=== PATIENT | female | born 1955 | race Caucasian/White ===

== ENCOUNTER 2021-08-16 04:56 | Inpatient (IN) | payer MEDICARE ==
[~2021-08-16] VITALS: Ht 170.2 cm; Wt 66.2 kg
[2021-08-16 06:50] LABS: BASOPHILS ABSOLUTE AUTO 0.09 K/mm3 (0.00-0.23); BASOPHILS PERCENT AUTO 1 % (0-2); EOSINOPHILS ABSOLUTE AUTO 0.58 K/mm3 (0.00-0.68); EOSINOPHILS PERCENT AUTO 5 % (0-6); Hematocrit 36.5 % (33.0-51.0); Hemoglobin 11.2 g/dL (11.5-16.0); IMMATURE GRAN ABSOLUTE AUTO 0.04 K/mm3 (0.00-0.10); IMMATURE GRAN PERCENT AUTO 0 % (0-1); LYMPHOCYTES ABSOLUTE AUTO 1.79 K/mm3 (0.84-5.20); LYMPHOCYTES PERCENT AUTO 17 % (21-46); MONOCYTES ABSOLUTE AUTO 0.68 K/mm3 (0.16-1.47); MONOCYTES PERCENT AUTO 6 % (4-13); Mean Corpuscular HGB 27.1 pg (26.0-34.0); Mean Corpuscular HGB Conc 30.7 g/dL (31.5-36.5); Mean Corpuscular Volume 88 fL (80-100); Mean Platelet Volume 10.4 fL (9.1-12.4); NEUTROPHILS ABSOLUTE AUTO 7.48 K/mm3 (1.96-9.15); NEUTROPHILS PERCENT AUTO 70 % (41-73); Platelet Count 349 K/mm3 (150-400); RDW Coefficient Variation 13.7 % (11.7-14.2); RDW Standard Deviation 44.8 fL (35.1-46.3); Red Blood Cell Count 4.13 M/mm3 (3.80-5.20); White Blood Cell Count 10.66 K/mm3 (4.00-11.30)
[2021-08-16 07:07] LABS: Alanine Aminotransfer (ALT/SGP 10 U/L (12-78); Albumin, Blood 2.1 g/dL (3.4-5.0); Albumin/Globulin Ratio 0.7 (0.8-1.8); Alk Phos 73 U/L (50-136); Anion Gap 3 mmol/L (6-16); Aspartate Aminotrans (AST/SGOT 14 U/L (12-37); Bilirubin, Total 0.3 mg/dL (0.1-1.0); Blood Urea Nitrogen 9 mg/dL (8-24); CO2, Blood 27 mmol/L (21-32); Calcium, Blood 7.9 mg/dL (8.5-10.1); Chloride, Blood 111 mmol/L (98-108); Creatinine, Blood 0.75 mg/dL (0.40-1.00); Globulin, Blood 3.1 g/dL (2.2-4.0); Glomerular Filtration Rate >60 (60-); Glucose, Blood 110 mg/dL (70-99); Magnesium, Blood 1.8 mg/dL (1.6-2.4); Potassium, Blood 3.6 mmol/L (3.5-5.5); Sodium, Blood 141 mmol/L (136-145); Total Protein, Blood 5.2 g/dL (6.4-8.2)
[2021-08-16] MEDS ORDERED: ALPR1 PO (07:32)
[2021-08-16] MEDS ORDERED: ANORO ELLIPTA1 EAC1 INH (07:34)
[2021-08-16] MEDS ORDERED: ALBU90OI INH (07:37)
[2021-08-16] MEDS ORDERED: GABA100 PO (07:39)
[2021-08-16] MEDS ORDERED: ONDA4 PO (07:41)
[2021-08-16] MEDS ORDERED: DICLOFENAC SOD100 G1 TOP (07:56)
--- NOTE | 2021-08-16 17:39 | NUR ---
PT PLEASANT TODAY. DID HAVE TIMES OF EMOTIONAL. CONCERN WITH CURRENT STATE OF CANCER. DR TUCKER TALKED WITH HER ABOUT CANCER MASS IN LUNG/ESOPHAGUS AREA, MADE NPO AND CALLED DR BARRAGAN FOR CONSULT. ORDERED MED RECORDS FROM [facility]. NOW IN CHART. PT STATES [facility] WILL NOT WORK FOR HER ANX. AFTER 0.5 MG SHE SLEEPING NOW. AWAKENS TO TOUCH. NO OTHER CONCERNS NOTED. BED IN LOW POSITION, CALL LITE IN REACH. CALLS APPROP
--- NOTE | 2021-08-17 05:13 | NUR ---
SHIFT SUMMARY AOX3 ABLE TO VOICE NEEDS C/O PAIN TO HER RIGHT LUNG DUE CANCER FENTALY PRN ADM WITH RELIF.LUNGS SOUNDS DEMISH HERMINIA NONPRODUCTIVE COUGH NEB TX ADM WITH RELIEF HEAD OF THE BED ELEVATED FOR PT COMFORT SOB NOTED RELIEF WITH BREATH IN AND OUTTECHNIQUE AND CONT OXYGEN URINE COLLETED FOR UAC&S PER ORDER
[2021-08-17 05:57] LABS: BASOPHILS ABSOLUTE AUTO 0.09 K/mm3 (0.00-0.23); BASOPHILS PERCENT AUTO 1 % (0-2); EOSINOPHILS ABSOLUTE AUTO 0.44 K/mm3 (0.00-0.68); EOSINOPHILS PERCENT AUTO 4 % (0-6); Hematocrit 40.2 % (33.0-51.0); Hemoglobin 12.1 g/dL (11.5-16.0); IMMATURE GRAN ABSOLUTE AUTO 0.05 K/mm3 (0.00-0.10); IMMATURE GRAN PERCENT AUTO 0 % (0-1); LYMPHOCYTES ABSOLUTE AUTO 0.63 K/mm3 (0.84-5.20); LYMPHOCYTES PERCENT AUTO 5 % (21-46); MONOCYTES ABSOLUTE AUTO 0.47 K/mm3 (0.16-1.47); MONOCYTES PERCENT AUTO 4 % (4-13); Mean Corpuscular HGB 26.4 pg (26.0-34.0); Mean Corpuscular HGB Conc 30.1 g/dL (31.5-36.5); Mean Corpuscular Volume 88 fL (80-100); Mean Platelet Volume 10.7 fL (9.1-12.4); NEUTROPHILS ABSOLUTE AUTO 10.02 K/mm3 (1.96-9.15); NEUTROPHILS PERCENT AUTO 86 % (41-73); Platelet Count 396 K/mm3 (150-400); RDW Coefficient Variation 13.7 % (11.7-14.2); RDW Standard Deviation 44.2 fL (35.1-46.3); Red Blood Cell Count 4.58 M/mm3 (3.80-5.20)
[2021-08-17 06:25] LABS: Alanine Aminotransfer (ALT/SGP 15 U/L (12-78); Albumin, Blood 2.2 g/dL (3.4-5.0); Albumin/Globulin Ratio 0.6 (0.8-1.8); Alk Phos 99 U/L (50-136); Anion Gap 10 mmol/L (6-16); Aspartate Aminotrans (AST/SGOT 20 U/L (12-37); Bilirubin, Total 0.4 mg/dL (0.1-1.0); Blood Urea Nitrogen 7 mg/dL (8-24); Bun/Creatinine Ratio 11.5 (12.0-20.0); CO2, Blood 22 mmol/L (21-32); Calcium, Blood 8.4 mg/dL (8.5-10.1); Chloride, Blood 111 mmol/L (98-108); Creatinine, Blood 0.61 mg/dL (0.40-1.00); Globulin, Blood 3.5 g/dL (2.2-4.0); Glomerular Filtration Rate >60 (60-); Glucose, Blood 95 mg/dL (70-99); Potassium, Blood 3.5 mmol/L (3.5-5.5); Sodium, Blood 143 mmol/L (136-145); Total Protein, Blood 5.7 g/dL (6.4-8.2)
--- NOTE | 2021-08-17 13:16 | NUR ---
SPOKE TO DR. JONES BY PHONE. SHE WILL NOT BE ABLE TO PLACE PEG TUBE FOR THIS PATIENT TODAY, BUT SAID THAT DR. SALCIDO WILL EVALUATE PT FOR PROCEDURE TOMORROW, ASKED THAT LOVEOX BE HELD TOMORROW. NURSE NOTIFY ORDER PLACED.
--- NOTE | 2021-08-17 17:46 | NUR ---
Case Conference: Spoke to pt's Guero today after meeting with pt. He did talk with Dr. Corona today about beginning treatment, both radiation and chemotherapy. Guero was tearful today, but hopeful after speaking to the Dr. Plan to touch base with him again later in the week as needed.
--- NOTE | 2021-08-17 17:54 | NUR ---
Met with pt this evening; she is tearful tonight. She reports she has not been getting adequate pain control. However, the bedside RN has requested and received increase in Fentanyl 50mcg every 2 hours prn from every 4 hrs. Hopeful for better pain control, as pt appears ashen and shaky, in part due to uncontrolled pain. According to Dr. Corona's notes, he plans to begin both radiation and chemo for this patient, as she wishes. Plan to see pt again tomorrow. Today was a visit of merely holding space, comforting pt.
--- NOTE | 2021-08-17 18:04 | NUR ---
SHIFT SUMMARY: PATIENT QUITE ANXIOUS THROUGHOUT THE DAY, BECOMES SEVERLY DYSPNEIC AND ANXIOUS WITH ANY ACTIVITY. WAS SEEN BY DR. NAQVI FROM RADIATION ONCOLOGY, PLAN IS TO START PALLIATIVE RADIATION TOMORROW AT NOON. DR. SALCIDO IS ALSO TO EVALUATE PT FOR PEG PLACEMENT TOMORROW. [facility] CHEST MEDIPORT ACCESSED FOR CPN INFUSION, BRISK BLOOD RETURN NOTED. NO EVENTS ON TELEMETRY, SINUS TACH IN LOW 100'S. C/O SEVERE BACK PAIN; MEDICATED WITH IV FENTANYL, BUT RELIEF ONLY LASTED ABOUT 2.5 HOURS, SO INTERVAL CHANGED PER PROVIDER TO IMPROVE PT COMFORT. O2 @ 5 L/MIN NC, AND SHE IS USING FAN PRN FOR AIR HUNGER. PT WILL NEED TO BE PRE-MEDICATED WITH [facility] PRIOR TO RAD ONC APPOINTMENT TOMORROW. WAS SEEN BY Mela JONES RN FROM PALLIATIVE CARE, WHO DISCUSSED COMFORT OPTIONS SUCH HOSPICE WITH PT. MARTHA SEEMS TO HAVE LITTLE UNDERSTANDING OF THE EXTENT OF HER DISEASE SHE SEEMED SUPRISED BY HOSPICE DISCUSSION. THIS AUTHOR DISCUSSED PT'S CODE STATUS WITH PC RN, , IF PT WERE TO CODE, THERE MAY BE DIFFICULTY WITH INTUBATION R/T EXTENT OF PT'S TUMOR BURDEN. PT WAS TEARFUL AFTER DISCUSSION WITH PC RN.
[2021-08-17] MEDS ORDERED: IPRAT-ALBUT 0.5-3 ML NEB (20:30)
--- NOTE | 2021-08-18 03:00 | NUR ---
MEDIPORT REACCESSED W/20G 1IN ALVAREZ NEEDLE. STERILE TECHNIQUE MAITAINED, ATIMICROBIAL PATCH AND TRANSPARENT DX APPLIED THEN SECURED W/ADDITIONAL TEGADERM DX. BLOOD RETURN VERIFIED AND PORT FLUSHED W/2O MLS NS. PROCEDURE WAS EXPLAINED AND PT WAS RE-EDUCATED ON PURPOSE. REMAINS AT BEDSIDE.
--- NOTE | 2021-08-18 03:14 | NUR ---
PT APPEARS TO BE IN DISTRESS, C/O SOB AND NOT BEING ABLE TO CATCH HER BREATH WHILE AT REST, PT MEDICATED WITH [facility]. PT BECAME IMPULSIVE AND KEEPS GETTING OUT OF BED WITHOUT ASSSISTANCE AND BECOME EXTREMLY SOB WHEN AMBULATING TO THE BEDSIDE COMODE. PT HR SUSTAINED IN THE 180'S MD CALLED AND ORDERS RECIEVED TO HELP CONTROL THE RATE WITH METOPROLOL AND CARDIZEM. PT CONTINUED TO SUSTAIN IN THE 180'S. MD CALLED AGAIN FOR ADDITIONAL DOSE OF CARDIZEM. PT CAME FROM THE [facility] SO EXCEPTIONS MADEI FOR TO STAY WITH THE PT. PT HR DROPPED TO THE 90-100'S, SECOND DOSE OF CARDIZEM WAS HELD FOR FURTHUR MONITORING. PT GOT UP WITHOUT ASSISTANCE TO THE BATHROOM AND REMOVED L CHEST PORT, NOTIFIED HOG TENDER AND PORT WAS REACESSED. TALKED WITH HOG TENDER ABOUT SAFETY CONCERNS FOR THE PT, AGREED ON PLACE TO THE SCU UNIT FOR FURTHER MONITORING. PT REMAINS STABLE DURING AND AFTER TRANSPORT.
--- NOTE | 2021-08-18 06:11 | NUR ---
Patient is alert and oriented x3, not oriented to situation. Impulsive when trying to get out of bed. She also takes off her oxygen canula. She is hard to redirect. was at bedside. She is able to move and dangle on the bed. NPO. VS are wnl. Patient is agitated, PRN medication given. Patient has a left chest port. Dressing is clean dry and intact. TPN on going. patient refuse q6 blood suga, she hits staff when asking for her finger for blood glucose check. Bed alarm on, call light within reach.
[2021-08-18 07:56] LABS: BASOPHILS ABSOLUTE AUTO 0.03 K/mm3 (0.00-0.23); BASOPHILS PERCENT AUTO 0 % (0-2); EOSINOPHILS ABSOLUTE AUTO 0.01 K/mm3 (0.00-0.68); EOSINOPHILS PERCENT AUTO 0 % (0-6); Hematocrit 39.3 % (33.0-51.0); Hemoglobin 12.5 g/dL (11.5-16.0); IMMATURE GRAN ABSOLUTE AUTO 0.06 K/mm3 (0.00-0.10); IMMATURE GRAN PERCENT AUTO 0 % (0-1); LYMPHOCYTES ABSOLUTE AUTO 0.68 K/mm3 (0.84-5.20); LYMPHOCYTES PERCENT AUTO 5 % (21-46); MONOCYTES ABSOLUTE AUTO 0.56 K/mm3 (0.16-1.47); MONOCYTES PERCENT AUTO 4 % (4-13); Mean Corpuscular HGB Conc 31.8 g/dL (31.5-36.5); Mean Corpuscular Volume 85 fL (80-100); Mean Platelet Volume 10.2 fL (9.1-12.4); NEUTROPHILS PERCENT AUTO 90 % (41-73); Platelet Count 442 K/mm3 (150-400); RDW Coefficient Variation 13.9 % (11.7-14.2); RDW Standard Deviation 43.1 fL (35.1-46.3); Red Blood Cell Count 4.63 M/mm3 (3.80-5.20); White Blood Cell Count 13.64 K/mm3 (4.00-11.30)
[2021-08-18 08:24] LABS: Alanine Aminotransfer (ALT/SGP 14 U/L (12-78); Albumin, Blood 2.3 g/dL (3.4-5.0); Albumin/Globulin Ratio 0.6 (0.8-1.8); Alk Phos 94 U/L (50-136); Anion Gap 8 mmol/L (6-16); Aspartate Aminotrans (AST/SGOT 13 U/L (12-37); Bilirubin, Total 0.2 mg/dL (0.1-1.0); Blood Urea Nitrogen 16 mg/dL (8-24); Bun/Creatinine Ratio 30.9 (12.0-20.0); CO2, Blood 27 mmol/L (21-32); Chloride, Blood 109 mmol/L (98-108); Creatinine, Blood 0.52 mg/dL (0.40-1.00); Globulin, Blood 3.6 g/dL (2.2-4.0); Glomerular Filtration Rate >60 (60-); Glucose, Blood 187 mg/dL (70-99); Magnesium, Blood 1.9 mg/dL (1.6-2.4); Potassium, Blood 3.3 mmol/L (3.5-5.5); Sodium, Blood 144 mmol/L (136-145); Total Protein, Blood 5.9 g/dL (6.4-8.2); Triglycerides 127 mg/dL (30-160)
--- NOTE | 2021-08-18 09:11 | NUR ---
ATTEMPTED TO ADMINISTRATE METRPORLOL 25 MG EARLY THIS MORNING, PATIENT REFUSED. ATTEMPTED AGAIN AT THIS TIME, BUT REQUESTED TO BE GIVE IT "LATER"
--- NOTE | 2021-08-18 10:18 | NUR ---
Pt was moved to the secured unit last night due to increased agitation and change in mentation. Staff apparently called pt's and asked him to come sit with her, which he did. Pt is pale and dyspneic. Instructed bedside RN to give prn Fentanyl. Also noted her Fentanyl patch was dried up and 3/4 off of her arm. Bedside RN witnessed this, so we threw it away. Spoke to Dr. Moran about the patch needing replaced today instead of tomorrow, along with pt's overall declining condition. She stated, "Please let me go home, I can't do this. I can't breath and I'm in pain". Pt's is ready to take patient home with hospice, as the patient continues to say she can't, and doesn't want to do anymore treatment. I am wondering if she may change her mind with adequate pain control. I did discuss this with Dr. Moran as well. He is going to see pt now. I will remain available, and will check in with pt and Dr. Moran after their visit.
--- NOTE | 2021-08-18 12:11 | NUR ---
Spiritual Care Visit. Pt. is awake and in bed. Pt. appears to be lethergic, but welcomes my visit. Pt. is unsettled about being in the hospital and verbalizes "I want to go home." Establish rapport with Pt. when spouse enters the room. Spouse is cathartic at my presence. Through theraputic listening, provide a calming presence. Facilitate a life review. Spouse displayed evidcence of reduced stress. Ecplored issues of arie and belief, and prayed for the pt. and spouse. Spouse is unsettled about the both the time and process of transferring Pt. home to hospice. Normalize the pt. experience. Spouse verbalizes gratitude for the spiritual care visit, and is open to my follow up this afternoon.
--- NOTE | 2021-08-18 12:28 | NUR ---
PATIENT AND REFUSED RADIATION WELL CT HEAD AND POSSIBLE PEG TUBE, THEY DECIDED TO GO HOME WITH HOSPICE, DR. TUCKER CONSULT PATIENT AND CHANGED ORDER ACCORDINLY. FENTANYL PATCH ADMINISTRATES ORDER, ALSO FENTANYL IV FOR PAIN AND ZOFRAN FOR NAUSE GIVEN THIS AM. PATIENT NO LONGER ON TELE MONITORING. ROXANOL AND TRANSDERM-SCOP PATCH ADMINISTRETED PER FARZANEH, CHARGE NURSE.
--- NOTE | 2021-08-18 18:01 | NUR ---
PATIENT IN COMFORT CARE. HALDOL ADMINISTRATED FOR ANXIETTY AND EFFECTIVE, PATIENT SLEEP MOST OF THE AFTERNOON. ON 4L/MIN VIA N/S, SAT IN THE LOW 90'S, NO SECREATION NOR RESPIRATORY DISTRESS NOTED AT THIS TIME. WILL CONTINUE TO MONITOR AND ADMINISTRATE PRN COMFORT MEDICATION ORDERED.
--- NOTE | 2021-08-18 21:24 | NUR ---
Received patient Alert, able to voice her need. Patient is not in any acute distress at this time. Patient is being medicated for confort. We'll monitor.
--- NOTE | 2021-08-19 00:29 | NUR ---
No changes in patient status.
--- NOTE | 2021-08-19 02:04 | NUR ---
PATIENT STATED, NO PAIN AT THIS TIME. SHE IS USING HER PHONE.
--- NOTE | 2021-08-19 04:06 | NUR ---
Patient is able to use the bed side comode with assist. She stated no pain at this time. We will continue to provide confort care to patient. Bed in low position, call light within reach.
--- NOTE | 2021-08-19 06:29 | NUR ---
Patient resting confortably, no acute changes noted.
--- NOTE | 2021-08-19 16:12 | NUR ---
Spiritual Care Visit. Pt. is tired but awake, Spouse (and dog) are present. Nurses were attending to Pt. Pts. Spouse verbalized that the pt. is unsettled about the length of time to discharge to hospice. Listen empatetically and seek to normalize the pt. expereince. Pt. responds with short one word answers. Clearly the pt. needs rest. Spouse took the dog out to their vehicle. This claim attorney stayed with pt. till spouse returned. Prayed for pt. Allowed Pt. to rest. Spouse returned and verbalized gratitude for the spiritual care visit.
--- NOTE | 2021-08-19 21:46 | NUR ---
Received patient AAOX3, Family at bed side requested pain medication. Pt is breathing heavy O2 4L via N/C. Patient have a dog inside of the room. We are monitoring.
--- NOTE | 2021-08-20 00:04 | NUR ---
Patient resting confortably, family at bedside, no complaint voices.
--- NOTE | 2021-08-20 04:17 | NUR ---
Patient not in any acute distress. Family at beside. No complaint
--- NOTE | 2021-08-20 06:29 | NUR ---
No changes in patient status.
--- NOTE | 2021-08-20 07:20 | NUR ---
CALLED RT FOR BREASTHING ASSESSMENT. PT STATED "NEEDING SOME AIR," MEDICATED ROXANAL AND MEDS FOR SECRETION, PT STATED FEELING MUCH BETTER. PT IS ON 6, RT AWARE AND INFORMED,
--- NOTE | 2021-08-20 11:31 | NUR ---
Comfort Care Visit Pt resting in bed with her eyes closed. Pt briefly opens her eyes with gentl touch then quickly closes them. Pt's spouse at bedside and is intermittently tearful. Offered emotional support and therapeutic listening. Pt's daughter and granddaughter are planning to visit today. Suggested to spouse the importance of self care and if needed to go to his hotel when they arrive. Spouse expresses appreciation and reports no other concerns at this time. Spoke with Primary RN Daquan and discussed case. Palliative Care will remain available.
--- NOTE | 2021-08-20 17:14 | NUR ---
SHIFT SUMMARY PT AOX4; FAMILY AT BEDSIDE; TALKED WITH PALLIATIVE CARE [facility] TODAY ABOUT THE PT. MEDICATED PER EMAR FOR AIRHUNGER AND SECRETIONS. PT ALSO GIVEN ZOFRAN FOR NAUSEA. PT IS ON 6L OF 02. HEAD OF BED ELEVATED FOR SUPPORT BREATHING. DTRS AND EMOTIONAL AT BEDSIDE. CALL LIGHT WITHIN REACH.
--- NOTE | 2021-08-20 19:44 | NUR ---
ERSTING QUIETLY WITH NEAR BEDSIDE
--- NOTE | 2021-08-20 20:13 | NUR ---
REPOSITIONED. MEDICATED FOR AIRHUNGER AND ANXIETY. SEE MAR FOR DETAILS. CALL LIGHT IN REACH. AT BEDSIDE
--- NOTE | 2021-08-20 22:15 | NUR ---
RESTING QUIETLY WITH AT BEDSIDE. CALL LIGHT IN REACH
--- NOTE | 2021-08-20 23:54 | NUR ---
MEDICATED FOR PAIN AND ANXIETY - SEE MAR FOR DETAILS. CALL LIGHT IN REACH. REMAINS AT BEDSIDE
--- NOTE | 2021-08-21 03:58 | NUR ---
RESTING QUIETLY WITH AT BEDSIDE. CALL LIGHT IN REACH
--- NOTE | 2021-08-21 04:26 | NUR ---
BLAST F[employer] SUPERVISOR SUMMARY CONTINUES ON COMFORT CARE WITH AT BEDSIDE. INTERMITTENT CALLING OUT AND AIRHUNGER. RECEIVED MEDS ORDERED FOR SUCH - SEE MAR FOR DETAILS. CURRENTLY RESTING WITH O2 PER NC AT 7L/MIN. HOB ELEVATED FOR COMFORT. CALL LIGHT IN REACH. FREQUENT STAFF OBSERVATIONS FOR COMFORT ISSUES.
--- NOTE | 2021-08-21 06:20 | NUR ---
CONTINUES TO REST QUIETLY WITH HOB ELEVATED AND O2 PER NC. AT BEDSIDE. CALL LIGHT IN REACH
--- NOTE | 2021-08-21 08:48 | NUR ---
Comfort Care Visit Spoke with Pt's spouse Guero in the [place]. Offered therapeutic listening and answered questions. Guero reports plan to go to the Hotel and eat some breakfast. Pt resting in bed with her eyes closed. Pt left undisturbed at this time. Pt appears comfortable with no S/S of distress at this time. Spoke with Primary RN Agustín and discussed case. Palliative Care will remain available.
--- NOTE | 2021-08-21 09:34 | NUR ---
PT MEDICATED FOR PAIN AND NAUSEA THIS AM. PT REPOSITIONED HERSELF. IS AT THE BEDSIDE
--- NOTE | 2021-08-21 09:36 | NUR ---
PT WAS ASLLEP DR. VIVAR ROUNDED ON THE PT. PT APPEARS TO BE COMFORTABLE
--- NOTE | 2021-08-21 11:18 | NUR ---
PT AWAKE GAVE MORPHINE IV FOR PAIN APPLIED ORDERED FENTNYLE PATCH.
--- NOTE | 2021-08-21 18:21 | NUR ---
PT APPEARS TO BE RESTING APPEARS COMFORTABLE
--- NOTE | 2021-08-22 04:38 | NUR ---
SHIFT SUMMARY PT HAS HAD A DIFFICULTS NIGHT. SHE WAS ABLE TO SLEEP FOR FEW HOURS BEFORE BECOMING ANXIOUS AND PAINFUL AGAIN. SHE WAS MEDICATED PER MAR FOR PAIN AND AGITATIONS. SHE HAS ALSO BEEN WARM AND UNCOMFORTABLE WITH HER OXYGEN IN HER NOSE. I HAVE BEEN SLOWLY TITRATING DOWN. HAS REMAINED WITH HER IN THE ROOM ALL NIGHT. WILL CONTINUE TO MONITOR.
--- NOTE | 2021-08-22 07:51 | NUR ---
PATIENT AT 0700. DR AND CHARGE NURSE NOTIFIED. PTS SPOUSE WAS WITH HER AND SHE WAS FREE OF PAIN SPIRITUAL CARE IS BeING PROVIDED FOR PTS SPOUSE
--- NOTE | 2021-08-22 08:18 | NUR ---
Patient's spouse, Guero is bedside and grieving appropriately. He explains about her medical problems and the days leading up to . He talks about her life, their relationship, her qualities and their Christianity arie. He also shares about his support system of family that live with him and good neighbors. I conduct a life review, assist in the home arrangements provide therapeutic listening, grief support and prayer. I will continue to remain available to Guero as he works through the details and makes challenging phone calls.
--- NOTE | 2021-08-22 09:30 | NUR ---
PATIENT AT APPROXIMATELY 0725 POSTMORTUM CARE PERFORMED AROUND 0815. ICE PACK APPLIED TO EYES FOR POSSIBLE ORGAN DONATION. [facility] CALLED FOR AND FAMILY. WAS AT BEDSIDE AT TIME OF PASSING. CHARGE NURSE FARZANEH HELPED WITH NEEDED ARRANGEMENTS. HAS NO QUESTIONS AT THIS TIME.
--- NOTE | 2021-08-22 13:32 | NUR ---
Received word from bedside RN that passed this morning, and was at bedside at the time. I called him to give my condolences. He was tearful, but thanked me for the care pt received while here. He states he does feel relieved that she won't have to suffer with anymore pain or air hunger. No other issues identified at this time.
--- NOTE | 2021-08-22 15:01 | NUR ---
PT WAS TAKEN TO HOME BY REPRESENATIVE NAMED TIA AT APPROX 6801
== END 2021-08-22 15:05 | DRG 180 ==
LOC: MEDS 04:56 → EDPENDDISTM 08-22 07:15 → ENPENDDIS 08-22 11:44 → MEDS 08-22 15:05
PROVIDERS: Internal Medicine; ADMIT Internal Medicine
PROC: 5A0935A Assistance with Respiratory Ventilation, Less than 24 Consecutive Hours, High Flow/Velocity Cannula (ICD-10-PCS; principal; 2021-08-20)
DX: C34.31 Malignant neoplasm of lower lobe, right bronchus or lung (principal); J96.01 Acute respiratory failure with hypoxia; E43 Unspecified severe protein-calorie malnutrition; C78.2 Secondary malignant neoplasm of pleura; J91.0 Malignant pleural effusion; I48.0 Paroxysmal atrial fibrillation; Z66 Do not resuscitate; Z51.5 Encounter for palliative care; E87.6 Hypokalemia; E86.0 Dehydration; R13.10 Dysphagia, unspecified; K22.2 Esophageal obstruction; I45.10 Unspecified right bundle-branch block; Z68.22 Body mass index [BMI] 22.0-22.9, adult; J43.9 Emphysema, unspecified; G47.33 Obstructive sleep apnea (adult) (pediatric); F41.9 Anxiety disorder, unspecified; Z85.828 Personal history of other malignant neoplasm of skin; Z79.899 Other long term (current) drug therapy; Z88.5 Allergy status to narcotic agent; Z28.21 Immunization not carried out because of patient refusal; Z87.891 Personal history of nicotine dependence; Z79.82 Long term (current) use of aspirin
CPT/HCPCS: 36415; 71260; 74220; 80053; 83735; 84443; 84478; 85025; 93306; 94640; 94760; 96372; 96374; 96375; 96376; A9270; G0378; J1642; J1650; J1885; J2060; J2270; J2405; J3010; J3411; J7030; Q9967